=== PATIENT | female | born 1965 ===

== ENCOUNTER 2020-08-20 09:05 | Outpatient (REF) | payer MEDICAID, SELFPAY | END 2020-08-20 09:06 | disposition home or self-care (01) | LOC: HO.SCI 09:05 | DX: Z13.89 Encounter for screening for other disorder (principal) ==

== ENCOUNTER → 2020-09-24 13:16 | Outpatient (BNVA) | payer MEDICAID, SELFPAY | PROVIDERS: Visit Provider Physician Assistant ==

== ENCOUNTER 2020-11-25 12:00 | Outpatient (REF) | payer MEDICAID, SELFPAY ==
--- NOTE | ~2020-11-25 | MM_ITS ---
EXAMINATION: MM SCREENING DIGITAL BREAST TOMOSYNTHESIS, BILATERAL CLINICAL INFORMATION: Screening. Asymptomatic. Prior mammography from [place] currently unavailable. Family history breast cancer, maternal aunt. The lifetime risk of breast cancer based on the Tyrer-Cuzick Model is 8%. COMPARISON: None. TECHNIQUE: Digital breast tomosynthesis is performed in both the craniocaudal and mediolateral oblique views along with computer-aided detection (CAD). Synthesized 2D images are generated from the tomosynthesis. Additional bilateral exaggerated CC views are provided. FINDINGS: The breasts are heterogeneously dense, which may obscure small masses (ACR BI-RADS breast composition Category c). Breast tissue composition borders on average fibroglandular. There are no significant masses, abnormal calcifications, or other abnormalities. The axilla are unremarkable. There is a dermal lesion just inferior to the right inframammary fold. MM/MM tomosynthesis screening BI IMPRESSION: No mammographic evidence of malignancy. ASSESSMENT: BI-RADS 2: Benign RECOMMENDATION: Routine annual mammography screening. This patient's information was entered into a reminder system with a target due date for their next mammogram.
== END 2020-11-25 12:01 | disposition home or self-care (01) ==
LOC: HO.MAMMO 12:00
PROVIDERS: Visit Provider Family Medicine
DX: Z12.31 Encounter for screening mammogram for malignant neoplasm of breast (principal)
CPT/HCPCS: 77063; 77067